=== PATIENT | male | born 1960 | race Caucasian/White ===

== ENCOUNTER 2023-07-27 17:51 | Emergency (ER) | payer BC, SELFPAY ==
[2023-07-27 17:58] VITALS: BP 129/91; PULSE 65; RESP 18; TEMP 37.1; O2SAT 98; BMI 31.2
--- NOTE | 2023-07-27 18:09 | ED.NURSE ---
TDap last on 01/31/2018.
--- NOTE | 2023-07-27 18:12 | ED.NURSE ---
Cleansed laceration with hibiclens and sterile water.
--- NOTE | 2023-07-27 18:36 | ED.WOUNDLAC ---
HPI - Wound/Laceration General Date Seen: 07/27/23 Chief Complaint: Laceration/Wound Stated Complaint: L palm cut on ice auger blade Time Seen by Provider: 07/27/23 17:53 Source: patient Mode of arrival: ambulatory Limitations: no limitations History of Present Illness HPI narrative: Patient is 62-year-old male presenting to emergency department for laceration to his left palm. Laceration is in the proximal thenar eminence region almost to the wrist. States he was working with an ice auger that was clean when it slipped cutting his home. His last tetanus shot was 2017. Denies any other injuries. Related Data Home Medications Medication Instructions Recorded Confirmed amlodipine 10 mg tablet 10 mg PO 08/09/22 03/08/23 bupropion HCl 150 mg 24 hr tablet, ea PO 08/09/22 03/08/23 extended release bupropion HCl 300 mg 24 hr tablet, ea PO 08/09/22 03/08/23 extended release citalopram 20 mg tablet 20 mg PO 08/09/22 03/08/23 lisinopril 40 mg tablet 40 mg PO 08/09/22 03/08/23 Previous Rx's Medication Instructions Recorded cephalexin 500 mg capsule 500 mg PO QID #20 caps 07/27/23 Allergies Allergy/AdvReac Type Severity Reaction Status Date / Time ibuprofen Allergy Mild gastric Verified 03/08/23 14:24 bypass Review of Systems Narrative: Negative unless stated HPI PFSH PFSH Medical History Fracture of left tibial plateau ?S82.142A - Displaced bicondylar fracture of left tibia, initial encounter for closed fracture (ICD-10) Cellulitis of toe, right ?L03.031 - Cellulitis of right toe (ICD-10) Surgical History S/P total right hip arthroplasty (02/28/08) ?Z96.641 - Presence of right artificial hip joint (ICD-10) H/O foot surgery (01/13/10) ?Z98.890 - Other specified postprocedural states (ICD-10) History of carpal tunnel surgery of right wrist (07/12/12) ?Z98.890 - Other specified postprocedural states (ICD-10) History of foot surgery (10/21/15) ?Z98.890 - Other specified postprocedural states (ICD-10) History of ankle surgery (11/18/15) ?Z98.890 - Other specified postprocedural states (ICD-10) H/O foot surgery (08/02/16) ?Z98.890 - Other specified postprocedural states (ICD-10) History of total left hip replacement (06/14/18) ?Z96.642 - Presence of left artificial hip joint (ICD-10) S/P debridement (08/02/18) ?Z98.890 - Other specified postprocedural states (ICD-10) History of total right knee replacement (08/02/18) ?Z96.651 - Presence of right artificial knee joint (ICD-10) History of carpal tunnel surgery of left wrist (06/06/19) ?Z98.890 - Other specified postprocedural states (ICD-10) History of open reduction and internal fixation (ORIF) procedure (03/04/21) ?Z98.890 - Other specified postprocedural states (ICD-10) Social History Smoking Status: Never smoker Exam Narrative: Exam Narrative: Const: Well-nourished, Well-developed, in mild distress Eyes: PERRL, no conjunctival injection, and symmetrical lids HENT: Atraumatic external nose and ears. Moist mucous membranes. Skin: Warm, Dry. About 1 cm laceration to left thenar eminence Neuro: Normal Muscle tone, No focal neurological deficits. Psych: Awake, Alert, & Oriented x3. Appropriate mood and affect. Const: Vital Signs, click to edit/add: Vital Signs - 24 hr 07/27/23 17:58 Temperature 98.7 F Pulse Rate [Pulse Oximeter] 65 Respiratory Rate 18 Blood Pressure [Ri ght Upper Arm] 129/91 H Pulse Oximetry 98 Oxygen Delivery Me thod Room Air Course Vital Signs Vital signs: Initial Vital Signs Temperature 98.7 F 07/27/23 17:58 Temperature Source Temporal Artery Scan 07/27/23 17:58 Pulse Rate 65 07/27/23 17:58 Pulse Rhythm Regular 07/27/23 17:58 Respiratory Rate 18 07/27/23 17:58 Blood Pressure 129/91 H 07/27/23 17:58 Blood Pressure Mean 103 07/27/23 17:58 Blood Pressure Position Sitting 07/27/23 17:58 Pulse Oximetry 98 07/27/23 17:58 Oxygen Delivery Method Room Air 07/27/23 17:58 Vital Signs Temperature 98.7 F 07/27/23 17:58 Pulse Rate 65 07/27/23 17:58 Respiratory Rate 18 07/27/23 17:58 Blood Pressure 129/91 H 07/27/23 17:58 Pulse Oximetry 98 07/27/23 17:58 Oxygen Delivery Method Room Air 07/27/23 17:58 Temperature 98.7 F 07/27/23 17:58 Pulse Rate 65 07/27/23 17:58 Respiratory Rate 18 07/27/23 17:58 Blood Pressure 129/91 H 07/27/23 17:58 Pulse Oximetry 98 07/27/23 17:58 Oxygen Delivery Method Room Air 07/27/23 17:58 MDM - Wound/Laceration MDM Narrative Medical decision making narrative: Patient is a 62-year-old male presenting for laceration to his left palm. He is otherwise doing well. Cold soap on a I saw get a states was clean. No signs of deep muscle or tendon involvement he has full range of motion of his thumb. He is up-to-date on his tetanus. No no signs of retained foreign body and I believe imaging is necessary at this time. He tolerated the procedure well. See procedure note. Considering the was on the hand I will prophylactically treat him with antibiotics. I gave him strict return precautions any signs of flexor tenosynovitis. He is agreeable to this plan. Discharge Plan Discharge Clinical Impression: Laceration Patient Disposition: Home, Self-Care Condition: Stable Instructions: Laceration (ED) Additional Instructions: Follow-up with your primary care provider in the next 7 days to have the 6 sutures removed. For next 6 months, once sutures are removed, whenever you go outside put a dab of sunscreen over the laceration site to improve scar appearance. Topical antibiotics are not necessary at this time. Patient can shower but do not submerge the laceration until sutures are removed. Take the antibiotics as prescribed. If you develop any of the following signs called Kanavel's Signs it could be a sign of flexor tenosynovitis and is an emergency that he need to return to emergency department immediately for -Pain with passive extension (often the first sign seen) -Percussion tenderness (tenderness over entire length of flexor tendon sheath) -Uniform swelling (symmetric finger swelling along length of the tendon sheath) -Flexion posture (flexed posture of involved digit at rest to minimize pain) Prescriptions: New cephalexin 500 mg capsule 500 mg PO QID Qty: 20 0RF No Action bupropion HCl 150 mg tablet extended release 24 hr PO Patient Comments: TAKE 1 TABLET BY MOUTH EVERY MORNING bupropion HCl 300 mg tablet extended release 24 hr PO Patient Comments: TAKE 1 TABLET BY MOUTH ONCE DAILY. citalopram 20 mg tablet 20 mg PO amlodipine 10 mg tablet 10 mg PO Patient Comments: TAKE 1 TABLET BY MOUTH EVERY DAY lisinopril 40 mg tablet 40 mg PO Follow Up/Referrals: Klever Li MD [Primary Care Provider] - Stand Alone Forms: [facility] Info Instructions Procedures Laceration Left palm: Name of person performing procedure: Gurjit Garber Site: hand Side (If applicable): left Size (cm): 1 Description: linear and clean Depth: simple, single layer Local Anesthetic: lidocaine 1% Amount of anesthesia used (mL): 2 Pre-repair: wound explored, irrigated extensively and deep structures intact Skin layer closed with: nylon Size (cm): 4-0 Number of sutures: 6 Technique: simple, interrupted
== END 2023-07-27 18:49 | disposition home or self-care (01) ==
PROVIDERS: Emergency Provider Student in an Organized Health Care Education/Training Program; PCP Family Medicine
DX: S61.412A Laceration without foreign body of left hand, initial encounter (principal); W31.89XA Contact with other specified machinery, initial encounter; Y93.29 Activity, other involving ice and snow
CPT/HCPCS: 12001; 95992; 99282; 99283

== ENCOUNTER 2024-03-06 07:57 | Emergency (ER) | payer BC, SELFPAY ==
[2024-03-06 08:00] VITALS: BP 162/56; PULSE 70; RESP 18; TEMP 36.6; O2SAT 96; BMI 32.3
--- NOTE | 2024-03-06 08:23 | ED.GENADULT ---
HPI - General Adult General Chief complaint: Post Op Complication Stated complaint: RT hip wound poss infection Time Seen by Provider: 03/06/24 08:07 History of Present Illness HPI narrative: Patient presents to the emergency department complaining of an infection. Patient states he had hip surgery approximately 2 weeks ago. He states today he believes his surgical site to be infected. Patient states he has had a brown/red fluid drainage. Hip is painful. 63 year old man presenting to the emergency department with concern of postop right hip infection. 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 January 15 of this year head another revision as hardware apparently did not set or seat. Two weeks ago had washout due to infected hardware/joint. Yesterday noted increasing pain and swelling. Did have drainage beginning for 5 days later from the hip which has continued relatively unchanged. Had to assist with flexion of his right thigh due to discomfort. Has not had a fever but has had drainage of his hip. Significant increase in pain yesterday as noted. No trauma noted. Was due to have sutures removed in 2 days time. Surgery was in [place]. Related Data Home Medications ?Medication ?Instructions ?Recorded ?Confirmed amlodipine 10 mg tablet 10 mg PO 08/09/22 03/08/23 bupropion HCl 150 mg 24 hr tablet, ea PO 08/09/22 03/08/23 extended release bupropion HCl 300 mg 24 hr tablet, ea PO 08/09/22 03/08/23 extended release citalopram 20 mg tablet 20 mg PO 08/09/22 03/08/23 lisinopril 40 mg tablet 40 mg PO 08/09/22 03/08/23 Previous Rx's ?Medication ?Instructions ?Recorded cephalexin 500 mg capsule 500 mg PO QID #20 caps 07/27/23 Allergies Allergy/AdvReac Type Severity Reaction Status Date / Time ibuprofen Allergy Mild gastric Verified 03/08/23 14:24 bypass Review of Systems Status of ROS: Reports: 6 or more systems reviewed and unremarkable except as noted in History and below [facility] Medical History Fracture of left tibial plateau ?S82.142A - Displaced bicondylar fracture of left tibia, initial encounter for closed fracture (ICD-10) Cellulitis of toe, right ?L03.031 - Cellulitis of right toe (ICD-10) Surgical History S/P total right hip arthroplasty (02/28/08) ?Z96.641 - Presence of right artificial hip joint (ICD-10) H/O foot surgery (01/13/10) ?Z98.890 - Other specified postprocedural states (ICD-10) History of carpal tunnel surgery of right wrist (07/12/12) ?Z98.890 - Other specified postprocedural states (ICD-10) History of foot surgery (10/21/15) ?Z98.890 - Other specified postprocedural states (ICD-10) History of ankle surgery (11/18/15) ?Z98.890 - Other specified postprocedural states (ICD-10) H/O foot surgery (08/02/16) ?Z98.890 - Other specified postprocedural states (ICD-10) History of total left hip replacement (06/14/18) ?Z96.642 - Presence of left artificial hip joint (ICD-10) S/P debridement (08/02/18) ?Z98.890 - Other specified postprocedural states (ICD-10) History of total right knee replacement (08/02/18) ?Z96.651 - Presence of right artificial knee joint (ICD-10) History of carpal tunnel surgery of left wrist (06/06/19) ?Z98.890 - Other specified postprocedural states (ICD-10) History of open reduction and internal fixation (ORIF) procedure (03/04/21) ?Z98.890 - Other specified postprocedural states (ICD-10) Social History Smoking Status: Never smoker Exam Narrative: Exam Narrative: Pleasant. Seems little uncomfortable. Breathing easily. Skin is warm and dry other than over surgical site. Vitals noted afebrile and not tachycardic. Heart is in regular rate and rhythm. With assistance of walker he does move to standing position. Examination of the right hip does show intact sutures though oozing liquid. Surrounding erythema about 2 in on all sides of the wound with induration and calor. Generally tender. Large palm-sized area equivalent of erythema. Const: Vital Signs, click to edit/add: Vital Signs - 24 hr 03/06/24 08:00 Temperature 97.9 F Pulse Rate [Right Pulse Oximeter] 70 Respiratory Rate 18 Blood Pressure [Ri ght Forearm] 162/56 H Pulse Oximetry 96 Oxygen Delivery Me thod Room Air Documenting provider has reviewed patient's vital signs: yes Course Vital Signs Vital signs: Initial Vital Signs Temperature 97.9 F 03/06/24 08:00 Temperature Source Temporal Artery Scan 03/06/24 08:00 Pulse Rate 70 03/06/24 08:00 Pulse Rhythm Regular 03/06/24 08:00 Pulse Strength 3+ Normal 03/06/24 08:00 Respiratory Rate 18 03/06/24 08:00 Blood Pressure 162/56 H 03/06/24 08:00 Blood Pressure Mean 91 03/06/24 08:00 Blood Pressure Position Sitting 03/06/24 08:00 Pulse Oximetry 96 03/06/24 08:00 Oxygen Delivery Method Room Air 03/06/24 08:00 Vital Signs Temperature 97.9 F 03/06/24 08:00 Pulse Rate 70 03/06/24 08:00 Respiratory Rate 18 03/06/24 08:00 Blood Pressure 162/56 H 03/06/24 08:00 Pulse Oximetry 96 03/06/24 08:00 Oxygen Delivery Method Room Air 03/06/24 08:00 Temperature 97.9 F 03/06/24 08:00 Pulse Rate 70 03/06/24 08:00 Respiratory Rate 18 03/06/24 08:00 Blood Pressure 162/56 H 03/06/24 08:00 Pulse Oximetry 96 03/06/24 08:00 Oxygen Delivery Method Room Air 03/06/24 08:00 Medications Administered Medications: Discontinued Medications Generic Name Dose Route Start Last Admin Trade Name Freq PRN Reason Stop Dose Admin Hydrocodone Bitart/Acetaminophen 2 tab 03/06/24 08:37 03/06/24 08:45 Hydrocodone-Acetamin 5-325 Mg 1 Tab PO 03/06/24 08:38 2 tab ONCE ONE Administration Ceftriaxone Sodium 1 gm/ 100 mls @ 200 mls/hr 03/06/24 10:28 03/06/24 10:45 Sodium Chloride IVPB 07/23/24 10:29 200 mls/hr ONCE ONE Administration Medical Decision Making MDM Narrative Medical decision making narrative: I would presume wound infection here. Will place IV and check labs. Contact surgeon/team for further recommendations. White count is elevated at 14.5. CRP also elevated at 6.4 IV had been initiated. Did manage to reach primary surgeon. Recommending cephalexin and follow-up tomorrow in ortho clinic. 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 Vitals remained good during time in the emergency department. Given dose of Rocephin here in the emergency department and will be continuing on a course of outpatient cephalexin. See patient discharge plan for further discussion Medical Records Medical records reviewed: Yes I reviewed the patient's medical records Lab Data Lab results reviewed: Yes I reviewed the patient's lab results Labs: Lab Results 03/06/24 Range/Units 08:55 WBC 14.54 H (4.50-11.00) K/uL RBC 3.99 L (4.30-5.90) m/uL Hgb 11.9 L (13.5-17.5) gm/dL Hct 35.6 L (37.0-53.0) % MCV 89 (80-100) fL MCH 30 (26-34) pg MCHC 33 (32-36) gm/dL RDW Coeff of Harika 14.5 (11.5-15.5) % Plt Count 201 (140-440) K/uL Neut % (Auto) 89.4 H (42.0-72.0) % Lymph % (Auto) 3.6 L (20-44) % [place] % (Auto) 6.4 (0.0-11.0) % Eos % (Auto) 0.3 (0.0-7.0) % Baso % (Auto) 0.2 (0.0-3.0) % Neut # (Auto) 13.00 H (1.7-7.0) K/uL Lymph # (Auto) 0.50 L (0.90-2.90) K/uL [place] # (Auto) 0.90 (0.00-0.90) K/UL Eos # (Auto) 0.00 (0.00-0.50) K/uL Baso # (Auto) 0.00 (0.00-0.30) K/uL Abs Immat Gran (auto) 0.00 (0.00-0.30) K/uL Imm/Tot Granulo (auto) 0.1 % Sodium 137 (135-149) mmol/L Potassium 3.4 L (3.6-5.1) mmol/L Chloride 103 (96-114) mmol/L Carbon Dioxide 31 (20-32) mmol/L Anion Gap 3 L (7-15) mEq/L BUN 16 (7-30) mg/dL Creatinine 0.9 (0.5-1.5) mg/dL Estimated Creat Clear 77.57 Estimated GFR 97 ml/min Glucose 102 (60-115) mg/dL Calcium 9.1 (8.4-10.6) mg/dL C-Reactive Protein 6.4 H (0.5-1.0) mg/dL Discharge Plan Discharge Clinical Impression: Postoperative wound infection Patient Disposition: Home w/ Parent or Adult Condition: Stable Additional Instructions: Will be starting also on cephalexin from [facility]. Dr. Malone would like to see you in clinic in [place] tomorrow. He says just show up and he will fit you in. Prescriptions: No Action bupropion HCl 150 mg tablet extended release 24 hr PO Patient Comments: TAKE 1 TABLET BY MOUTH EVERY MORNING bupropion HCl 300 mg tablet extended release 24 hr PO Patient Comments: TAKE 1 TABLET BY MOUTH ONCE DAILY. citalopram 20 mg tablet 20 mg PO amlodipine 10 mg tablet 10 mg PO Patient Comments: TAKE 1 TABLET BY MOUTH EVERY DAY lisinopril 40 mg tablet 40 mg PO cephalexin 500 mg capsule 500 mg PO QID Qty: 20 0RF Follow Up/Referrals: Klever Li MD [Primary Care Provider] - Stand Alone Forms: [facility] Info Instructions
[2024-03-06] MEDS: HYDROCODONE-ACETAMIN 5-325 MG 1 TAB 2 TAB PO (08:45)
[2024-03-06 09:06] LABS: Basophils Percent Auto 0.2 % (0.0-3.0); Eosinophils Percent Auto 0.3 % (0.0-7.0); Hematocrit 35.6 % (37.0-53.0); Hemoglobin* 11.9 gm/dL (13.5-17.5); Immature Granulocytes Pct Auto 0.1 %; Lymphocytes Percent Auto 3.6 % (20-44); Mean Corpuscular HGB Conc 33 gm/dL (32-36); Mean Corpuscular Hemoglobin 30 pg (26-34); Mean Corpuscular Volume 89 fL (80-100); Monocytes Percent Auto 6.4 % (0.0-11.0); Neutrophils Percent Auto 89.4 % (42.0-72.0); Platelet Count* 201 K/uL (140-440); RDW Coefficient of Variation % 14.5 % (11.5-15.5); Red Blood Count 3.99 m/uL (4.30-5.90); White Blood Count* 14.54 K/uL (4.50-11.00)
--- OUTSIDE RECORDS SUMMARY | 2024-03-06 09:12 | XMS_ITS | Referral Summary ---
Author Organization [facility] Address [address] [place] [address] Care Team Providers Care Staff Nurse Name Role Phone Unavailable Primary Care Provider Unavailabl e Source Comments Patient records contain information from all sites at [facility]. For routine questions regarding patient records, call [phone] during business hours, M-F 8:00 AM - 5:00 PM Central Time. Record requests for emergency care only can be directed to [phone] at any time.[facility] Social History Tobacco Use Types Packs/Day Years Used Date Smoking Tobacco: Never Assessed Nutrition Answer Date Recorded Nutrition: EVOO Fat Source Unknown 11/23 Nutrition: Servings of Fruits/Vegetables per Day Not on file 11/24/2023 Dental Answer Date Recorded Dental: Regular Dentist Unknown 11/24/19 Sex and Gender Information Value Date Recorded Sex Assigned at Not on file Gender Identity Not on file Sexual Orientation Not on file Plan [place] [id number]
--- OUTSIDE RECORDS SUMMARY | 2024-03-06 09:12 | XMS_ITS | Clinical Summary ---
Author Organization [facility] Address [address] [place] [address] Care Team Providers Care Grinder Set Up Operator Jig Name Role Phone Unavailable Primary Care Provider Unavailabl e Source Comments Patient records contain information from all sites at [facility]. For routine questions regarding patient records, call [phone] during business hours, M-F 8:00 AM - 5:00 PM Central Time. Record requests for emergency care only can be directed to [phone] at any time.[facility] Social History Tobacco Use Types Packs/Day Years [...] Orientation Not on file Plan of Treatment Health Maintenance Due Date Last Done Comments CT Colonography 1962 Cologuard 1960 FIT 1960 HIV Screening 1960 Hepatitis C Screening 1960 COVID-19 Vaccine ( - 2022-24 season) 2023 11/28/2020, 10/31/2020 Depression Screening (Annual PHQ-2) 08/15/2023 Influenza Vaccine (#1) 2024 2, 05/26/2021, 05/27/2020, Additional history exists Fasting Glucose for Diabetes Screening 06/04/2026 06/04/2023, 03/23/2023, 11/19/2022, Additional history exists DTaP,Tdap,and Td Vaccines (3 - Td or Tdap) 02/01/2028 01/31/2018, 08/18/2009 Lipid (Cholesterol) Screening 03/23/2028 03/23/2023, 03/22/2022, 12/21/2018 Colonoscopy 03/31/2033 03/31/2023 Colorectal Cancer Screening 03/31/2033 Zoster Vaccines Completed 07/26/2018, 12/13/2017 Pneumococcal vaccine (0-64 years) Aged Out No longer eligible based on patient's age to complete this topic
--- OUTSIDE RECORDS SUMMARY | 2024-03-06 09:12 | XMS_ITS | Encounter Summary ---
Author Organization [facility] Address [address] [place] [address] Care Team Providers Care Consulting Analyst Name Role Phone Unavailable Primary Care Provider Unavailabl e Reason for Visit * Outpatient (Routine) - Closed Specialty Diagnoses / Procedures Referred By Evelyn mendosa Referred To Contact Diagnoses Elevated Blood Pressure Pain Hip Right Procedures NM Bone Scan 3 Phase Gurjit Malone M.D. [address] [place] [id number] [facility] Referral ID Status Reason Start Date Expiration Date Visits Re quested Visits Authorized [id number] Closed 12/05/2023 01/04/2024 8 8 Encounter Details Date Type Department Care Team (Latest Contact Info) Description 12/05/2023 1:37 PM CDT - 12/05/2023 11:59 PM CDT Hospital Encounter Department of Radiology, [facility], in [place], [place] [address] [place] [address] Gurjit Malone M.D. [address] [place] [phone] Discharge Disposition: Home or Self Care Social History Tobacco Use Types Packs/Day Years [...] on file Sexual Orientation Not on file documented as of this encounter Plan of Treatment Not on file documented as of this encounter Procedures Procedure Name Priority Date/Time Associated Diagnosis Comments [place] BONE SCAN 3 PHASE RAD - Routine (most inpatients and all outpatients) 12/05/2023 2:31 PM CDT Elevated Blood Pressure Pain Hip Right documented in this encounter Results * NM Bone Scan 3 Phase (12/05/2023 2:31 PM CDT) Anatomical Region Laterality Modality Body, Nuclear Medicine RST L OS, Nuclear Medicine ARZ LOS, Nuclear Medicine FLA LOS, Nuclear Medicine N/A Nuclear Med icine Impressions 12/05/2023 3:41 PM CDT 1. Increased tracer uptake over the right acetabulum indicative of bone remodeling. This could be residual from surgical changes performed in May 2023. However no evidence of infection. 2. Findings suggesting the possibility of bursitis of the right greater trochanter. Narrative 12/05/2023 3:41 PM CDT EXAM: [place] BONE SCAN 3 PHASE COMPARISON: Plain films of 11/24/2023 PROCEDURE: Flow study over the pelvis and both hips was performed. This was followed by immediate blood pool imaging and delayed static imaging of pelvis and both hips. FINDINGS: Flow images demonstrate bilaterally symmetric flow. On static, blood pool initial images there is suggestion of minor increased tracer uptake in the region of the right greater trochanter. Filling defect from known hip arthroplasties can be seen. On delay images there is increased uptake surrounding the right prosthetic acetabulum. Minor increased uptake over the greater trochanter and overlying soft tissues on the right can be seen. Once again filling defects from bilateral hip arthroplasty can be seen. RADIOPHARMACEUTICAL/MEDS: Route: intravenous technetium Tc 99m medronate injection (Tc-99m MDP),26.3 millicurie Procedure Note Nathaniel Montilla M.D. - 12/05/2023 EXAM: [place] BONE SCAN 3 PHASE COMPARISON: Plain films of 11/24/2023 PROCEDURE: Flow study over the pelvis and both hips was performed. This was followed by immediate blood pool imaging and delayed staticimaging of pelvis and both hips. FINDINGS: Flow images demonstrate bilaterally symmetric flow. On static, blood pool initial images there is suggestion of minorincreased tracer uptake in the region of the right greater trochanter.Filling defect from known hip arthroplasties can be seen. On delay images there is increased uptake surrounding the right prostheticacetabulum. Minor increased uptake over the greater trochanter andoverlying soft tissues on the right can be seen. Once again fillingdefects from bilateral hip arthroplasty can be seen. RADIOPHARMACEUTICAL/MEDS: Route: intravenous technetium Tc 99m medronate injection (Tc-99m MDP),26.3 millicurie IMPRESSION: 1. Increased tracer uptake over the right acetabulum indicative of boneremodeling. This could be residual from surgical changes performed inOcto2022. However no evidence of infection. 2. Findings suggesting the possibility of bursitis of the right greatertrochanter. Gurjit RIVAS NM PROCEDURES documented in this encounter Visit Diagnoses Not on filedocumented in this encounter
--- OUTSIDE RECORDS SUMMARY | 2024-03-06 09:12 | XMS_ITS ---
Author Organization [facility] Address [address] [place] [address] Care Team Providers Care Field Crop Technical Officer Name Role Phone Unavailable Unavailable Unavailable Surgery Details Not on file Complications Check Surgery Details section. Procedure Estimated Blood Loss Check Surgery Details section. Procedure Findings Check Surgery Details section. Procedure Specimens Taken Check Surgery Details section.
--- OUTSIDE RECORDS SUMMARY | 2024-03-06 09:12 | XMS_ITS | Encounter Summary ---
Author Organization [facility] Address [address] [place] [address] Care Team Providers Care Carpet Sewer Name Role Phone Unavailable Primary Care Provider Unavailabl e Reason for Referral * Outpatient (Routine) - Closed Specialty Diagnoses / Procedures Referred By Evelyn mendosa Referred To Contact Diagnoses Elevated Blood Pressure Pain Hip Right Procedures NM Bone Scan 3 Phase Gurjit Malone M.D. [address] [place] [phone] [facility] Referral ID Status Reason Start Date Expiration Date Visits Re quested Visits Authorized [id number] Closed 12/05/2023 01/04/2024 8 8 Reason for Visit * Outpatient (Routine) - Closed Specialty Diagnoses / Procedures Referred By Evelyn mendosa Referred To Contact Diagnoses Elevated Blood Pressure Pain Hip Right Procedures NM Bone Scan 3 Phase Gurjit Malone M.D. [address] [place] [phone] [facility] Referral ID Status Reason Start Date Expiration Date Visits Re quested Visits Authorized [id number] Closed 12/05/2023 01/04/2024 8 8 Encounter Details Date Type Department Care Team (Latest Contact Info) Description 12/05/2023 10:59 AM CDT - 12/05/2023 1:36 PM CDT Hospital Encounter Department of Radiology, [facility], in [address] [phone] Gurjit Malone M.D. [address] [place] [address] Elevated Blood Pressure; Pain Hip Right Discharge Disposition: Home or Self Care Social History Tobacco Use Types Packs/Day Years Used Date Smoking Tobacco: Never Assessed Nutrition Answer Date Recorded Nutrition: EVOO Fat Source Unknown 11/23 Nutrition: Servings of Fruits/Vegetables per Day Not on file 11/24/2023 Dental Answer Date Recorded Dental: Regular Dentist Unknown 11/24/19 24 Sex and Gender Information Value Date Recorded Sex Assigned at Not on file Gender Identity Not on file Sexual Orientation Not on file documented as of this encounter Plan of Treatment Not on file documented as of this encounter Procedures Procedure Name Priority Date/Time Associated Diagnosis Comments NM BONE SCAN 3 PHASE RAD - Routine [...] trochanter. Narrative 12/05/2023 3:41 PM CDT EXAM: NM BONE SCAN 3 PHASE COMPARISON: Plain films [...] Note Nathaniel Montilla M.D. - 12/05/2023 EXAM: NM BONE SCAN 3 PHASE COMPARISON: Plain films [...] of bursitis of the right greatertrochanter. Gurjit Malone M.D. [facility] PROCEDURES documented in this encounter Visit Diagnoses Diagnosis Elevated Blood Pressure Pain Hip Right documented in this encounter Administered Medications Inactive Administered Medications - up to 3 most recent administrations Medication Order MAR Action Action Date Dose Rate Site technetium Tc 99m medronate injection (Tc-99m MDP) 26.3 millicurie, intravenous, Once, On 12/05/23 at 1130, For 1 dose, Imaging Protocol Orders Given 12/05/2023 11:45 AM CDT 26.3 millicuries Left Antecubital documented in this encounter
[2024-03-06 09:16] LABS: Slide Review Reflex No
[2024-03-06 09:17] LABS: Chloride* 103 mmol/L (96-114); Sodium* 137 mmol/L (135-149)
[2024-03-06 09:18] LABS: Potassium* 3.4 mmol/L (3.6-5.1)
[2024-03-06 09:20] LABS: Creatinine* 0.9 mg/dL (0.5-1.5); Est. Creatinine Clearance* 77.57; Estimated Glomerular Filt Rate 97 ml/min
[2024-03-06 09:21] LABS: Anion Gap 3 mEq/L (7-15); Blood Urea Nitrogen* 16 mg/dL (7-30); Carbon Dioxide* 31 mmol/L (20-32); Glucose* 102 mg/dL (60-115)
[2024-03-06 09:22] LABS: Calcium* 9.1 mg/dL (8.4-10.6)
[2024-03-06 09:24] LABS: C Reactive Protein* 6.4 mg/dL (0.5-1.0)
[2024-03-06] MEDS: cefTRIAXone 1 GM in 0.9 % SODIUM CHLORIDE Mini-bag 100 ML IVPB (10:45)
== END 2024-03-06 11:26 | disposition home or self-care (01) ==
PROVIDERS: Emergency Provider Family Medicine; PCP Family Medicine
DX: T81.49XA Infection following a procedure, other surgical site, initial encounter (principal)
CPT/HCPCS: 36415; 80048; 85025; 86140; 96365; 96372; 99283; 99284; A9270; J0696